=== PATIENT | female | born 1990 | race African-American/Black ===

== ENCOUNTER 2021-01-29 00:08 | Emergency (ER) | payer OTHER ==
[2021-01-29 00:32] VITALS: BP 119/77; PULSE 83; TEMP 98.3; BMI 25.8
[2021-01-29] MEDS ORDERED: HIV POST EXPOSURE PROPHYLAXIS KIT NR ONE (00:47)
[2021-01-29] MEDS ORDERED: HIV POST EXPOSURE PROPHYLAXIS KIT PO ONE (02:15)
[2021-01-29 03:01] LABS: ALBUMIN 4.6 g/dl (3.4-5.0); BLOOD UREA NITROGEN 11.2 mg/dL (7-18); CALCIUM 9.6 mg/dL (8.5-10.1)
[2021-01-29 03:03] LABS: CREATININE 0.7 mg/dL (0.55-1.3); URIC ACID 3.9 mg/dL (2.6-7.2)
[2021-01-29 03:04] LABS: PHOSPHOROUS 4.4 mg/dL (2.5-4.9)
[2021-01-29 03:05] LABS: TOT PROT 8.4 g/dl (6.4-8.2)
[2021-01-29 03:06] LABS: BILIRUBIN,TOTAL 0.4 mg/dL (0.2-1)
[2021-01-29 04:21] LABS: HIV INTERPRETATION NEGATIVE (NEGATIVE)
== END 2021-01-29 02:45 | disposition home or self-care (01) ==
LOC: JER 00:08
DX: Z77.21 Contact with and (suspected) exposure to potentially hazardous body fluids (principal)
CPT/HCPCS: 80053; 82465; 82977; 83615; 84100; 84478; 84550; 84703; 86317; 86704; 86706; 86803; 87340; 87389; 99283-25

== ENCOUNTER 2022-04-27 08:59 | Emergency (ER) | payer OTHER, SELFPAY ==
[2022-04-27 09:12] VITALS: BP 116/76; PULSE 85; RESP 17; TEMP 97.9; BMI 29.0
[2022-04-27] MEDS ORDERED: IBUPROFEN 600 MG TABLET (FP) PO ONE ×3 (09:58→10:11)
== END 2022-04-27 10:25 | disposition home or self-care (01) ==
LOC: JERFT 08:59 → JER 08:59 → JERFT 10:25
DX: M54.6 Pain in thoracic spine (principal)
CPT/HCPCS: 99283-25

== ENCOUNTER 2023-08-01 07:32 | Emergency (ER) | payer BC, OTHER ==
[2023-08-01 07:52] VITALS: BP 104/65; PULSE 80; RESP 18; TEMP 98.5; BMI 27.4
[2023-08-01] MEDS ORDERED: ACETAMINOPHEN 500 MG TABLET (FP) PO ONE (08:27)
[2023-08-01] MEDS ORDERED: ACETAMINOPHEN 325 MG TABLET (FP) ONE (08:33)
== END 2023-08-01 11:16 | disposition home or self-care (01) ==
LOC: JER 07:32
PROC: 2W39X1Z Immobilization of Left Upper Extremity using Splint (ICD-10-PCS; principal; 2023-08-01)
DX: S62.610A Displaced fracture of proximal phalanx of right index finger, initial encounter for closed fracture (principal); M20.012 Mallet finger of left finger(s); M79.645 Pain in left finger(s); W19.XXXA Unspecified fall, initial encounter; Y93.9 Activity, unspecified; Y92.9 Unspecified place or not applicable
CPT/HCPCS: 73130-TC-LT-FY; 73140-TC-LT-FY; 99283-25